=== PATIENT | male | born 1975 | race Caucasian/White ===

== ENCOUNTER 2020-05-12 18:57 | Emergency (ER) | payer BC, SELFPAY ==
[2020-05-12 18:59] VITALS: BP 132/84; PULSE 79; RESP 20; TEMP 36.2; O2SAT 99; BMI 27.5
--- NOTE | 2020-05-12 19:26 | XR_ITS ---
PROCEDURE: XR FOOT RT MIN 3V CLINICAL INDICATION: GLASS IN FOOT COMPARISON: No exams were available for comparison FINDINGS: No fracture or dislocation. No lytic or blastic change. There is normal mineralization. The joint spaces are well-preserved. No significant degenerative/arthritic changes. No erosive changes evident. No definite radiopaque foreign bodies. Other findings:None. IMPRESSION: No acute findings. Dictated by: Alin La 05/13/2020 08:09 Electronically signed by Alin La in [place] 05/13/2020 08:09
--- NOTE | 2020-05-12 19:32 | HMH.EDUTC ---
[facility] [place] Disposition Clinical Impression: Cellulitis of right foot Disposition: Home, Self-Care Condition on Discharge: Good Instructions: Cellulitis Additional Instructions: Take the antibiotics as directed and apply the topical medication as directed. Soak the foot in warm epsom salts water three or four times per day for the next week. Stay off the foot and keep it elevated as much time as possible. Follow up with the shipping and receiving associate (Dr. Farr) if you are not getting better with in a couple of days. I put in a referral but you need to call her office to get an appointment. GO TO THE ER FOR ANY WORSENING SYMPTOMS OR CONCERNS Prescriptions: Sulfamethoxazole/Trimethoprim [Bactrim DS tablet] 1 each PO BID 10 Days #20 tab Transmission Status: Received by [facility] #[id number] Mupirocin [Bactroban 2% Ointment 22gm tube] 1 applicatio TP TID 7 Days #1 tube Transmission Status: Received by [facility] #[id number] cephALEXin [Keflex 500mg Cap] 500 mg PO Q6H 10 Days #40 cap Transmission Status: Received by [facility] #[id number] Referrals: Provider,Referral, [Primary Care Provider] - Forms: Work/School Release Time of Disposition: 20:17 Medical Decision Making - Medical Records Medical records reviewed: No: I reviewed the patient's medical records. - Mik Inquiry Pt receiving controlled substance: No Vital Signs: 05/12/20 18:59 05/12/20 20:22 Temperature 97.1 F L 97.1 F L Temperature Source Oral Pulse Rate 79 Pulse Rate [Right Radial] 79 Respiratory Rate 20 20 Blood Pressure 132/84 Blood Pressure [Right Arm] 132/84 Blood Pressure Mean [Right Arm] 100 02 Sat by Pulse Oximetry 99 Orders (Tests/Meds): ED MEDICATIONS Discontinued Medications Generic Name Dose Route Start Last Admin Trade Name Freq PRN Reason Stop Dose Admin Ceftriaxone Sodium 1 gm 05/12/20 20:10 05/12/20 20:11 Rocephin 1gm Vial IM 05/12/20 20:11 1 gm ONCE ONE Administration Protocol Lidocaine HCl 0 ml 05/12/20 20:10 05/12/20 20:11 Lidocaine 1% 10ml Mdv IM 05/12/20 20:11 2.1 ml ONCE ONE Administration ORDERS Category Date Time Status Foot XR right minimum 3 views [XR foot RT min 3V] Stat Exams 05/12/20 19:26 Taken - Radiology Data #1 Image(s): Foot/Toes Image Reviewed: Yes I reviewed the patient's radiology image Preliminary Findings: Normal/NAD [facility] [place] HPI - General Stated complaint: AO 04/28 Glass in R Heel Time Seen by Provider: 05/12/20 19:15 Mode of Arrival: Ambulatory Source of Information: Patient Limitations: No Limitations Description of Symptoms (Recalled from Triage Doc. by RN): PT C/O GLASS STUCK IN HIS RT HEEL THAT THEY TRIED TO REMOVE AT HOME ON THEIR OWN AND WAS UNSUCCESSFUL HEENT Symptoms (Recalled from RN notes): No Resp Symptoms (Recalled from RN notes): No Skin Symptoms (Recalled from RN notes): Yes (GLASS IN RT HEEL) MS Symptoms (Recalled from RN notes): No Functional Status (Recalled from RN notes): N/A - History of Present Illness Provider Complaint: He states that around 5 days ago he was walking bare foot in his yard when he stepped on what he thinks was a piece of glass. Over the past 2 days, his right heel has became very painful to touch or stand on. His states that she did get a small piece of glass out of the wound earlier today, but they are afraid there is more glass in the wound or it is infected. He is not diabetic. - Related Data Previous Rx's Medication Instructions Recorded Mupirocin [Bactroban 2% Ointment 1 applicatio TP TID 7 Days #1 tube 05/12/20 22gm tube] Sulfamethoxazole/Trimethoprim 1 each PO BID 10 Days #20 tab 05/12/20 [Bactrim DS tablet] cephALEXin [Keflex 500mg Cap] 500 mg PO Q6H 10 Days #40 cap 05/12/20 Allergies Allergy/AdvReac Type Severity Reaction Status Date / Time No Known Allergies Allergy Verified 05/12/20 19:26 - Worker's Comp Is this a Worker's C
[2020-05-12 20:22] VITALS: BP 132/84; PULSE 79; RESP 20; TEMP 36.2; O2SAT 99
== END 2020-05-12 20:24 | disposition home or self-care (01) ==
PROVIDERS: Emergency Provider Nurse Practitioner Family; PCP Family Medicine
DX: L03.115 Cellulitis of right lower limb (principal)
CPT/HCPCS: 73630; 96372; 99201; 99202

== ENCOUNTER → 2021-06-14 13:00 | Outpatient (POV) | payer BC, SELFPAY | PROVIDERS: Visit Provider Dermatology | DX: Z00.00 Encounter for general adult medical examination without abnormal findings (principal) ==

== ENCOUNTER → 2021-11-30 11:01 | Outpatient (CLI) | payer BC, SELFPAY | PROVIDERS: Visit Provider Nurse Practitioner | DX: Z20.822 Contact with and (suspected) exposure to COVID-19 (principal) | CPT/HCPCS: C9803; U0003; U0005 ==

== ENCOUNTER → 2021-12-05 13:51 | Outpatient (CLI) | payer BC, SELFPAY | PROVIDERS: PCP Internal Medicine; Visit Provider Nurse Practitioner | DX: Z20.822 Contact with and (suspected) exposure to COVID-19 (principal) | CPT/HCPCS: C9803; U0003; U0005 ==

== ENCOUNTER → 2021-12-14 10:13 | Outpatient (CLI) | payer BC, SELFPAY ==
--- NOTE | 2021-12-14 10:25 | ECG_ITS ---
APPROVED REPORT Exam: Resting ECG HR:121 bpm ECG Measurements Heart Rate 121 AXES AR 166 P 34 QRSd 90 QRS 17 QT 328 T 5 QTc 400 Conclusion SINUS TACHYCARDIA Otherwise Normal EKG UNCONFIRMED REPORT Electronically signed by : Sean Garcia MD 12/14/2021 10:42:47
--- NOTE | 2021-12-14 10:39 | XR_ITS ---
FINAL REPORT TECHNIQUE: Chest PA & Lateral CLINICAL HISTORY: COUGH, SPUTUM, FEVER; patient has had 2 negative covid tests this week; non-smoker FINDINGS: 2 views of the chest were performed. The heart size is normal. The mediastinum is within normal limits. There is no acute cardiopulmonary process. There are no pleural effusions. There is no pneumothorax. The bony thorax appears intact. IMPRESSION: No acute cardiopulmonary process. Reviewed, Interpreted and Dictated by Zan Giraldo MD Transcribed by Eulalio Edwards Authenticated by Zan Giraldo MD on 12/14/2021 11:33:[address] [facility]
== END ==
PROVIDERS: PCP Internal Medicine; Visit Provider Internal Medicine
DX: R00.0 Tachycardia, unspecified (principal); R05.9 Cough, unspecified; R09.89 Other specified symptoms and signs involving the circulatory and respiratory systems; R50.9 Fever, unspecified
CPT/HCPCS: 71046; 93005